=== PATIENT | female | born 1930 | race Caucasian/White ===

== ENCOUNTER 2017-07-08 09:08 | Emergency (ER) | payer MEDICARE, BC ==
[2017-07-08 10:20] VITALS: BP 122/57
[2017-07-08] MEDS ORDERED: Levalbuterol 0.63MG/3ML NEB* UNIT OF USE INH ONE (10:37)
--- NOTE | 2017-07-08 10:38 | UC ---
Respiratory Complaint HPI - HPI Summary HPI Summary: Pt is accompanied by daughter. Pt c/o nasal and chest congestion, SOB, fatigue , productive cough and generalized malaise X 5-7 days. - History of Current Complaint Chief Complaint: UCRespiratory Stated Complaint: COUGH,CHEST CONGESTION Time Seen by Provider: 07/08/17 10:13 Hx Obtained From: Patient, Family/Loan Officer ?: No Onset/Duration: Gradual Onset, Lasting Days, Still Present, Worse Since - onset Severity Initially: Mild Severity Currently: Moderate Character: Cough: Productive Aggravating Factors: Exertion, Deep Breaths, Recumbent Position Alleviating Factors: Nothing Associated Signs And Symptoms: Positive: Chills, URI, Nasal Congestion - Risk Factors Pulmonary Embolism Risk Factors: Negative Cardiac Risk Factors: Negative Pseudomonas Risk Factors: Negative Tuberculosis Risk Factors: Negative - Allergies/Home Medications Allergies/Adverse Reactions: Allergies Allergy/AdvReac Type Severity Reaction Status Date / Time No Known Allergies Allergy Verified 07/08/17 10:20 Home Medications: Home Medications Ascorbic Acid TAB* [Vitamin C TAB*] 500 mg PO DAILY 07/08/17 [History Confirmed 07/08/17] [id number] [Nyquil Severe Cold/Flu 5-6.25-10-325 mg/15Ml] 2 tab PO ONCE PRN 07/08/17 [History Confirmed 07/08/17] PMH/Surg Hx/FS Hx/Imm Hx Previously Healthy: Yes - Surgical History Surgical History: Yes Surgery Procedure, Year, and Place: LEFT MASTECTOMY. cataract tessa. - Family History Known Family History: Positive: Cardiac Disease - Social History Occupation: Retired Lives: Alone - family stays at night with day Alcohol Use: None Substance Use Type: None Smoking Status (MU): Never Smoked Tobacco Have You Smoked in the Last Year: No - Immunization History Most Recent Influenza Vaccination: 2017 Most Recent Pneumonia Vaccination: UTD Review of Systems Constitutional: Chills, Fatigue Skin: Negative Eyes: Negative ENT: Sinus Congestion Respiratory: Shortness Of Breath - with exertion, Cough Cardiovascular: Negative Gastrointestinal: Negative Genitourinary: Negative Motor: Negative Neurovascular: Negative Musculoskeletal: Myalgia Neurological: Negative Psychological: Negative Is Patient Immunocompromised?: No All Other Systems Reviewed And Are Negative: Yes Physical Exam Triage Information Reviewed: Yes Appearance: Well-Appearing Vital Signs: Initial Vital Signs Temp 97.6 F 07/08/17 10:10 Pulse 65 07/08/17 10:10 Resp 24 07/08/17 10:10 BP 122/57 07/08/17 10:10 Pulse Ox 95 07/08/17 10:10 Vital Signs Reviewed: Yes Eye Exam: Normal ENT Exam: Other ENT: Positive: Nasal congestion Dental Exam: Normal Neck exam: Normal Respiratory Exam: Normal Respiratory: Positive: Normal breath sounds Cardiovascular Exam: Normal Musculoskeletal Exam: Normal Neurological Exam: Normal Psychological Exam: Normal Skin Exam: Normal UC Diagnostic Evaluation - Laboratory O2 Sat by Pulse Oximetry: 95 Respiratory Course/Dx - Differential Dx/Diagnosis Differential Diagnosis/HQI/PQRI: Bronchitis, Influenza, Other - pneumonia Provider Diagnoses: Bronchitis Discharge - Discharge Plan Condition: Stable Disposition: HOME Prescriptions: Albuterol HFA INHALER* [Ventolin HFA Inhaler*] 1 - 2 puff INH Q6H PRN #1 mdi PRN Reason: Sob/Wheezing Benzonatate CAP* [Tessalon 100 MG CAP*] 100 mg PO Q8H PRN #30 cap PRN Reason: Cough DOXYcycline CAP(*) [DOXYcycline 100MG CAP(*)] 100 mg PO Q12H #20 cap predniSONE TAB* [Deltasone TAB*] 30 mg PO DAILY #12 tab Patient Education Materials: Acute Bronchitis (ED) Referrals: Kobe Solomon MD [Primary Care Provider] - If Needed
== END 2017-07-08 11:23 | disposition home or self-care (01) ==
LOC: UCCORT 09:08
DX: J40 Bronchitis, not specified as acute or chronic (principal)
CPT/HCPCS: 99212; G0463; J7614

== ENCOUNTER 2018-03-22 09:25 | Emergency (ER) | payer MEDICARE, BC ==
[2018-03-22 11:05] VITALS: BP 142/56
--- NOTE | 2018-03-22 11:37 | UC ---
Lower Extremity/Ankle HPI - HPI Summary HPI Summary: patient has a 2nd toe on the right foot that curls up and developed a blister from rubbing on the top of her shoe, the toe is not red, painful and swollen - History of Current Complaint Chief Complaint: UCSkin Stated Complaint: RIGHT 2ND TOE CONCERN Time Seen by Provider: 03/22/18 11:04 Hx Obtained From: Patient ?: No Onset/Duration: Sudden Onset, Lasting Days Severity Initially: Mild Severity Currently: Mild Pain Intensity: 2 Aggravating Factor(s): Standing, Ambulation Alleviating Factor(s): Rest Able to Bear Weight: Yes - Allergies/Home Medications Allergies/Adverse Reactions: Allergies Allergy/AdvReac Type Severity Reaction Status Date / Time No Known Allergies Allergy Verified 03/22/18 10:57 Home Medications: Home Medications Aspirin EC TAB* [Ecotrin EC Low Dose 81 MG*] 81 mg PO DAILY 03/22/18 [History Confirmed 03/22/18] Donepezil TAB* [Aricept 5 MG TAB*] 10 mg PO DAILY 03/22/18 [History Confirmed ] Melatonin 5 mg PO BEDTIME 03/22/18 [History Confirmed 03/22/18] Memantine TAB* [Namenda TAB*] 10 mg PO DAILY 03/22/18 [History Confirmed ] PMH/Surg Hx/FS Hx/Imm Hx Previously Healthy: Yes - Surgical History Surgical History: Yes Surgery Procedure, Year, and Place: LEFT MASTECTOMY. cataract tessa. - Family History Known Family History: Positive: Cardiac Disease - Social History Alcohol Use: None Substance Use Type: None Smoking Status (MU): Never Smoked Tobacco Have You Smoked in the Last Year: No - Immunization History Most Recent Influenza Vaccination: 2017 Most Recent Pneumonia Vaccination: UTD Review of Systems Constitutional: Negative Skin: Bruising - and redness, small open area Eyes: Negative ENT: Negative Respiratory: Negative Cardiovascular: Negative Gastrointestinal: Negative Genitourinary: Negative Motor: Negative Neurovascular: Negative Musculoskeletal: Negative Neurological: Negative Psychological: Negative Is Patient Immunocompromised?: No All Other Systems Reviewed And Are Negative: Yes Physical Exam Triage Information Reviewed: Yes Appearance: Well-Appearing, Well-Nourished, Pain Distress Vital Signs: Initial Vital Signs Temp 97.8 F 03/22/18 10:58 Pulse 68 03/22/18 10:58 Resp 18 03/22/18 10:58 BP 142/56 03/22/18 10:58 Pulse Ox 96 03/22/18 10:58 Vital Signs Reviewed: Yes Eye Exam: Normal ENT Exam: Normal Dental Exam: Normal Neck exam: Normal Neck: Positive: Supple, Nontender, No Lymphadenopathy Respiratory Exam: Normal Cardiovascular Exam: Normal Cardiovascular: Positive: RRR, No Murmur, Pulses Normal Abdominal Exam: Normal Musculoskeletal: Positive: Strength Limited @ - at baseline, walks with cane, unsteady gait Neurological Exam: Normal Psychological Exam: Normal Skin: Positive: significant lesion(s) - small open blister on the top of the right second toe, toe is swollen and red. Lower Extremity Course/Dx - Course Course Of Treatment: hx obtained, exam performed, meds reviewed, educated on care, post op shoe is too large, daughter is going to buy a pair of sandals to keep toe from rubbing - Differential Dx/Diagnosis Differential Diagnosis/HQI/PQRI: Cellulitis, Fracture (Closed), Sprain, Strain Provider Diagnoses: cellulitis of the right 2nd toe Discharge - Sign-Out/Discharge Documenting (check all that apply): Patient Departure All imaging exams completed and their final reports reviewed: Yes - Discharge Plan Condition: Stable Disposition: HOME Prescriptions: Cephalexin CAP* [Keflex CAP*] 500 mg PO TID #21 cap Patient Education Materials: Cellulitis (DC) Referrals: Kobe Solomon MD [Primary Care Provider] - Additional Instructions: 1. take the medication as prescribed. 2. Warm water soaks 2 times a day in warm water, allow to dry completely, use the non stick pads to cover. I recommend opent toed sandal to prevent rubbing against the toe Archie's is a very supportive sandal. 3.Follow up if not improving - Billing Disposition and Condition Condition: STABLE Disposition: Home
== END 2018-03-22 11:41 | disposition home or self-care (01) ==
LOC: UCCORT 09:25
DX: L03.031 Cellulitis of right toe (principal)
CPT/HCPCS: 99212; G0463